=== PATIENT | female | born 1945 | race Caucasian/White ===

== ENCOUNTER 2024-04-21 11:29 | Emergency (ER) | payer MEDICARE ==
--- NOTE | 2024-04-21 11:40 | ERPHSYRPT ---
- History of Present Illness Time Seen by Provider: 04/21/24 11:40 Source: patient Exam Limitations: no limitations Physician History: This is an 79-year-old white female patient who presents with 3 to 4-week history of generalized weakness. Patient has a history of rheumatoid arthritis and Sjogren's syndrome. She is not on any new medications. She denies nausea vomiting and diarrhea symptoms. She denies chest pain or pain anywhere else. She states she does not have much of an appetite. She denies weight loss. She states she is never had anything like this before. She denies cough. She denies chest pain. She denies abdominal pain. Timing/Duration: week(s) (3 to 4 weeks), other (Not necessarily worse but not improving. Patient does not have an outpatient provider locally.) Severity: moderate Modifying Factors: Improves With: nothing Associated Symptoms: loss of appetite, weakness, No nausea, No vomiting, No abdominal pain, No shortness of breath, No chest pain, No fever Allergies/Adverse Reactions: No Known Drug Allergies Allergy (Unverified 04/21/24 11:40) Home Medications: Alendronate Sodium 70 mg [Fosamax 70 MG] 70 mg PO UD 04/21/24 [History] Cevimeline HCl 1 ea DAILY 04/21/24 [History] Timolol Maleate/Pf [Timolol Maleate 0.5% Eye Drop] 1 each OP DAILY 04/21/24 [History] Travel Risk - International Travel Have you traveled outside of the country in past 3 weeks: No - Emerging Infectious Disease Are you exhibiting symptoms associated with any current EIDs: No - Review of Systems Constitutional: Weakness Eyes: No Symptoms Ears, Nose, & Throat: No Symptoms Respiratory: No Symptoms Cardiac: No Symptoms Abdominal/Gastrointestinal: Appetite Changes, No Abdominal Pain, No Nausea, No Vomiting, No Diarrhea, No Constipation Genitourinary Symptoms: No Symptoms Musculoskeletal: No Symptoms Skin: No Symptoms Neurological: No Symptoms Psychological: No Symptoms Endocrine: No Symptoms Hematologic/Lymphatic: No Symptoms Immunological/Allergic: No Symptoms All Other Systems: Reviewed and Negative - Past Medical History Pertinent Past Medical History: Yes Musculoskeletal History: Rheumatoid Arthritis - Past Surgical History Past Surgical History: No - Nursing Vital Signs Nursing Vital Signs: Initial Vital Signs Temperature 97.0 F 04/21/24 11:44 Pulse Rate 82 04/21/24 11:44 Respiratory Rate 12 04/21/24 11:44 Blood Pressure 121/71 04/21/24 11:44 O2 Sat by Pulse Oximetry 95 04/21/24 11:44 Pain Scale Pain Intensity 0 - Physical Exam General Appearance: no apparent distress, alert, anxiety, thin Eye Exam: PERRL/EOMI, eyes nml inspection Ears, Nose, Throat Exam: dry mucous membranes Neck Exam: normal inspection, non-tender, supple, full range of motion Respiratory Exam: normal breath sounds, lungs clear, No chest tenderness, No respiratory distress, No airway intact Cardiovascular Exam: regular rate/rhythm, normal heart sounds, normal peripheral pulses Gastrointestinal/Abdomen Exam: soft, normal bowel sounds, No tenderness Pelvic Exam: not done Rectal Exam: not done Back Exam: normal inspection, normal range of motion, No CVA tenderness, No vertebral tenderness Extremity Exam: normal inspection, normal range of motion, pelvis stable Neurologic Exam: alert, oriented x 3, cooperative, croze cutter helper II-XII nml as tested, nml cerebellar function, nml station & gait, sensation nml Skin Exam: normal color, warm, dry Lymphatic Exam: No adenopathy SpO2 Interpretation: normal O2 Delivery: Room Air - Course Nursing assessment & vital signs reviewed: Yes EKG Interpreted by Me: RATE (82), Sinus Rhythm, NORMAL AXIS, NORMAL INTERVALS, Left Bundle Branch Block, Other (No acute ischemic changes on today's twelve- lead EKG. QTc is 465.) Ordered Tests: Active Orders 24 hr Category Date Time Status EKG-ER Only STAT Care 04/21/24 11:58 Active IV Insertion STAT Care 04/21/24 11:58 Active CBC W DIFF Stat Lab 04/21/24 12:00 Completed CMP Stat Lab 04/21/24 12:00 Completed CULTURE,URINE Stat Lab 04/21/24 12:07 Received MAGNESIUM Stat Lab 04/21/24 12:00 Completed MONO SCREEN Stat Lab 04/21/24 12:00 Completed NT PRO BNPII Stat Lab 04/21/24 12:00 Completed TROPONIN Q4H Lab 04/21/24 12:00 Completed TROPONIN Q4H Lab 04/21/24 16:00 Ordered TROPONIN Q4H Lab 04/21/24 20:00 Ordered TSH [TSH, 3RD Generation] Stat Lab 04/21/24 12:00 Completed UA W/RFX UR CULTURE Stat Lab 04/21/24 12:07 Completed Medication Summary Generic Name Dose Route Start Last Admin Trade Name Freq PRN Reason Stop Dose Admin Sodium Chloride 1,000 mls @ 100 mls/hr 04/21/24 12:00 04/21/24 12:11 Sodium Chloride 0.9% 1000 Ml IV 05/21/24 11:59 100 mls/hr .Q10H CANDELARIA Administration Discontinued Medications Generic Name Dose Route Start Last Admin Trade Name Freq PRN Reason Stop Dose Admin Ceftriaxone Sodium 1 gm in 100 mls @ 200 mls/hr 04/21/24 13:03 04/21/24 13:42 Rocephin 1 Gm / 100 Ml Nacl IV 04/21/24 13:32 Infused STAT ONE Infusion Ceftriaxone Sodium Confirm 04/21/24 13:08 Rocephin 1 Gm / 100 Ml Nacl Administered 04/21/24 13:09 Dose 1 gm in 100 mls @ ud IV .STK-MED ONE Lab/Rad Data: Laboratory Result Diagrams 04/21/24 12:00 04/21/24 12:00 Laboratory Results 04/21/24 04/21/24 04/21/24 Range/Units 12:18 12:07 12:00 WBC (3.98-10.04) x10^3/uL RBC (3.93-5.22) x10^6/uL Hgb (11.2-15.7) g/dL Hct (34.1-44.9) % MCV (79.4-94.8) fL MCH (25.6-32.2) pg MCHC (32.2-35.5) g/dL RDW (11.7-14.4) % Plt Count (182-369) x10^3/uL MPV (9.4-12.3) fL Gran % (34.0-71.1) % Immature Gran % (Auto) (0.001-0.429) % Nucleat RBC Rel Count (0.00-0.2) % Eos # (Auto) (0.04-0.36) x10^3/uL Immature Gran # (Auto) (0.001-0.031) x10^3u/L Absolute Lymphs (auto) (1.18-3.74) x10^3/uL Absolute Monos (auto) (0.24-0.86) x10^3/uL Absolute Nucleated RBC (0.00-0.012) x10^3u/L Lymphocytes % (19.3-51.7) % Monocytes % (4.7-12.5) % Eosinophils % (0.7-5.8) % Basophils % (0.1-1.2) % Absolute Granulocytes (1.56-6.13) x10^3/uL Basophils # (0.01-0.08) x10^3/uL Sodium (135-145) mmol/L Potassium (3.5-5.1) mmol/L Chloride (98-107) mmol/L Carbon Dioxide (22-30) mmol/L Anion Gap (5-15) MEQ/L BUN (7-17) mg/dL Creatinine (0.52-1.04) mg/dL Estimated GFR ML/MIN Glucose (74-106) mg/dL Calcium (8.4-10.2) mg/dL Magnesium (1.6-2.3) mg/dL Total Bilirubin (0.2-1.3) mg/dL AST (14-36) U/L ALT (0-35) U/L Alkaline Phosphatase (38-126) U/L Troponin I (0.000-0.033) ng/mL NT-Pro-B Natriuret Pep (<300) pg/mL Serum Total Protein (6.3-8.2) g/dL Albumin (3.5-5.0) g/dL Free T4 (0.78-2.19) ng/dL TSH 3rd Generation (0.470-4.680) mIU/L Urine Color Yellow (Yellow) Urine Appearance Clear (Clear) Urine pH 5.5 (4.6-8.0) Ur Specific [place] 1.020 (1.005-1.030) Urine Protein Trace A (Negative) Urine Glucose (UA) Negative (Negative) mg/dL Urine Ketones Negative (Negative) Urine Blood Negative (Negative) Urine Nitrite Negative (Negative) Urine Bilirubin Negative (Negative) Urine Urobilinogen 1.0 A (0.2) mg/dL Ur Leukocyte Esterase Small A (Negative) U Hyaline Cast (Auto) NONE SEEN (0-2) /LPF Urine Microscopic RBC 0-2 (0-5) /HPF Urine Microscopic WBC 11-20 A (0-5) /HPF Ur Epithelial Cells Rare (None Seen) /HPF Urine Bacteria None Seen (None Seen) /HPF Urine Culture Reflexed YES (NO) Monoscreen NEGATIVE (NEGATIVE) Influenza Type A Ag NEGATIVE (NEGATIVE) Influenza Type B Ag NEGATIVE (NEGATIVE) RSV (PCR) NEGATIVE (NEGATIVE) SARS-CoV-2 (PCR) NEGATIVE (NEGATIVE) 04/21/24 04/21/24 04/21/24 Range/Units 12:00 12:00 12:00 WBC (3.98-10.04) x10^3/uL RBC (3.93-5.22) x10^6/uL Hgb (11.2-15.7) g/dL Hct (34.1-44.9) % MCV (79.4-94.8) fL MCH (25.6-32.2) pg MCHC (32.2-35.5) g/dL RDW (11.7-14.4) % Plt Count (182-369) x10^3/uL MPV (9.4-12.3) fL Gran % (34.0-71.1) % Immature Gran % (Auto) (0.001-0.429) % Nucleat RBC Rel Count (0.00-0.2) % Eos # (Auto) (0.04-0.36) x10^3/uL Immature Gran # (Auto) (0.001-0.031) x10^3u/L Absolute Lymphs (auto) (1.18-3.74) x10^3/uL Absolute Monos (auto) (0.24-0.86) x10^3/uL Absolute Nucleated RBC (0.00-0.012) x10^3u/L Lymphocytes % (19.3-51.7) % Monocytes % (4.7-12.5) % Eosinophils % (0.7-5.8) % Basophils % (0.1-1.2) % Absolute Granulocytes (1.56-6.13) x10^3/uL Basophils # (0.01-0.08) x10^3/uL Sodium 137 (135-145) mmol/L Potassium 3.4 L (3.5-5.1) mmol/L Chloride 101 (98-107) mmol/L Carbon Dioxide 29 (22-30) mmol/L Anion Gap 10.3 (5-15) MEQ/L BUN 13 (7-17) mg/dL Creatinine 0.66 (0.52-1.04) mg/dL Estimated GFR 88.1 ML/MIN Glucose 147 H (74-106) mg/dL Calcium 8.4 (8.4-10.2) mg/dL Magnesium 2.3 (1.6-2.3) mg/dL Total Bilirubin 0.40 (0.2-1.3) mg/dL AST 21 (14-36) U/L ALT 13 (0-35) U/L Alkaline Phosphatase 70 (38-126) U/L Troponin I < 0.012 (0.000-0.033) ng/mL NT-Pro-B Natriuret Pep 276 (<300) pg/mL Serum Total Protein 5.6 L (6.3-8.2) g/dL Albumin 3.0 L (3.5-5.0) g/dL Free T4 1.12 (0.78-2.19) ng/dL TSH 3rd Generation 0.806 (0.470-4.680) mIU/L Urine Color (Yellow) Urine Appearance (Clear) Urine pH (4.6-8.0) Ur Specific [place] (1.005-1.030) Urine Protein (Negative) Urine Glucose (UA) (Negative) mg/dL Urine Ketones (Negative) Urine Blood (Negative) Urine Nitrite (Negative) Urine Bilirubin (Negative) Urine Urobilinogen (0.2) mg/dL Ur Leukocyte Esterase (Negative) U Hyaline Cast (Auto) (0-2) /LPF Urine Microscopic RBC (0-5) /HPF Urine Microscopic WBC (0-5) /HPF Ur Epithelial Cells (None Seen) /HPF Urine Bacteria (None Seen) /HPF Urine Culture Reflexed (NO) Monoscreen (NEGATIVE) Influenza Type A Ag (NEGATIVE) Influenza Type B Ag (NEGATIVE) RSV (PCR) (NEGATIVE) SARS-CoV-2 (PCR) (NEGATIVE) 04/21/24 Range/Units 12:00 WBC 6.0 (3.98-10.04) x10^3/uL RBC 4.14 (3.93-5.22) x10^6/uL Hgb 12.0 (11.2-15.7) g/dL Hct 35.7 (34.1-44.9) % MCV 86.2 (79.4-94.8) fL MCH 29.0 (25.6-32.2) pg MCHC 33.6 (32.2-35.5) g/dL RDW 13.6 (11.7-14.4) % Plt Count 350 (182-369) x10^3/uL MPV 11.6 (9.4-12.3) fL Gran % 70.9 (34.0-71.1) % Immature Gran % (Auto) 0.5 H (0.001-0.429) % Nucleat RBC Rel Count 0.0 (0.00-0.2) % Eos # (Auto) 0.02 L (0.04-0.36) x10^3/uL Immature Gran # (Auto) 0.03 (0.001-0.031) x10^3u/L Absolute Lymphs (auto) 0.97 L (1.18-3.74) x10^3/uL Absolute Monos (auto) 0.69 (0.24-0.86) x10^3/uL Absolute Nucleated RBC 0.00 (0.00-0.012) x10^3u/L Lymphocytes % 16.2 L (19.3-51.7) % Monocytes % 11.6 (4.7-12.5) % Eosinophils % 0.3 L (0.7-5.8) % Basophils % 0.5 (0.1-1.2) % Absolute Granulocytes 4.23 (1.56-6.13) x10^3/uL Basophils # 0.03 (0.01-0.08) x10^3/uL Sodium (135-145) mmol/L Potassium (3.5-5.1) mmol/L Chloride (98-107) mmol/L Carbon Dioxide (22-30) mmol/L Anion Gap (5-15) MEQ/L BUN (7-17) mg/dL Creatinine (0.52-1.04) mg/dL Estimated GFR ML/MIN Glucose (74-106) mg/dL Calcium (8.4-10.2) mg/dL Magnesium (1.6-2.3) mg/dL Total Bilirubin (0.2-1.3) mg/dL AST (14-36) U/L ALT (0-35) U/L Alkaline Phosphatase (38-126) U/L Troponin I (0.000-0.033) ng/mL NT-Pro-B Natriuret Pep (<300) pg/mL Serum Total Protein (6.3-8.2) g/dL Albumin (3.5-5.0) g/dL Free T4 (0.78-2.19) ng/dL TSH 3rd Generation (0.470-4.680) mIU/L Urine Color (Yellow) Urine Appearance (Clear) Urine pH (4.6-8.0) Ur Specific [place] (1.005-1.030) Urine Protein (Negative) Urine Glucose (UA) (Negative) mg/dL Urine Ketones (Negative) Urine Blood (Negative) Urine Nitrite (Negative) Urine Bilirubin (Negative) Urine Urobilinogen (0.2) mg/dL Ur Leukocyte Esterase (Negative) U Hyaline Cast (Auto) (0-2) /LPF Urine Microscopic RBC (0-5) /HPF Urine Microscopic WBC (0-5) /HPF Ur Epithelial Cells (None Seen) /HPF Urine Bacteria (None Seen) /HPF Urine Culture Reflexed (NO) Monoscreen (NEGATIVE) Influenza Type A Ag (NEGATIVE) Influenza Type B Ag (NEGATIVE) RSV (PCR) (NEGATIVE) SARS-CoV-2 (PCR) (NEGATIVE) - Progress Progress: re-examined Progress Note: 04/21/24 12:08 My medical decision making and the assignment of moderate complexity to this pat ient's medical issue today is based on review of the patient's past medical history, review the patient's medication list, history present illness and physical findings on examination. The workup includes placement of intravenous line, infusion of normal saline solution, CBC, CMP, urinalysis, BNP, troponin level, twelve-lead EKG, free T4, TSH, magnesium level and viral swabs as well as monotest. Differential diagnosis includes but is not limited to viral illness, anemia, myocardial infarction, CHF, electrolyte abnormalities, urinary tract infection, thyroid abnormalities, dehydration 04/21/24 14:25 Interpreted the patient's laboratory data results. The patient has a mild UTI. In addition she does have a mild hypokalemia. There are no other significant findings to suggest an acute or emergent medical issue based on her laboratory data results. Counseled pt/family regarding: lab results, diagnosis Medical Desision Making - Diagnostic Testing Diagnostic test were ordered, analyzed, and reviewed by me: Yes - Risk of complications The pt has a mod risk of morbidity or mortality based on: Need for prescription drug management - Departure Departure Disposition: Home Clinical Impression: Weakness, UTI (urinary tract infection) Condition: Stable Critical Care Time: No Referrals: Marilia Jones [facility] [Primary Care Provider] - Follow up/PCP as directed Additional Instructions: Drink plenty of fluids. Take your antibiotics and other medications as prescribed. Follow-up with a primary care provider to make arrangements for follow-up appointment to be seen in the next 3 to 5 days. Prescriptions: Ciprofloxacin [Cipro 500 MG] 500 mg PO BID #14 tablet
[2024-04-21 11:44] VITALS: TEMP 97
[2024-04-21] MEDS ORDERED: Sodium Chloride 0.9% 1000 ML 1,000 ML ONE (12:09)
[2024-04-21] MEDS: Sodium Chloride 0.9% 1000 ML 1,000 ML IV SCH (12:11)
[2024-04-21 12:22] LABS: Absolute Neutrophil Ct (ANC) 4.23 x10^3/uL (1.56-6.13); BASOPHIL % 0.5 % (0.1-1.2); Basophil (Absolute #) 0.03 x10^3/uL (0.01-0.08); Eosinophil % 0.3 % (0.7-5.8); Eosinophil (Absolute #) 0.02 x10^3/uL (0.04-0.36); Hematocrit 35.7 % (34.1-44.9); IMMATURE GRAN # 0.03 x10^3u/L (0.001-0.031); IMMATURE GRAN % 0.5 % (0.001-0.429); Lymphocyte (Absolute #) 0.97 x10^3/uL (1.18-3.74); Lymphocytes % 16.2 % (19.3-51.7); Mean Cell Volume 86.2 fL (79.4-94.8); Mean Corpuscular Hgb Concent. 33.6 g/dL (32.2-35.5); Mean Platelet Volume 11.6 fL (9.4-12.3); Monocyte (Absolute #) 0.69 x10^3/uL (0.24-0.86); Monocytes % 11.6 % (4.7-12.5); Neutrophil % 70.9 % (34.0-71.1); Platelet Count 350 x10^3/uL (182-369); Red Blood Count 4.14 x10^6/uL (3.93-5.22); Red Cell Distribution Width 13.6 % (11.7-14.4)
[2024-04-21 12:24] LABS: Appearance Clear (Clear); Bacteria None Seen /HPF (None Seen); Bilirubin Negative (Negative); Blood Negative (Negative); Epithelial Cells Rare /HPF (None Seen); Glucose, Urine Negative (Negative); Hyaline Casts NONE SEEN /LPF (0-2); Ketones Negative (Negative); Leukocyte Esterase Small (Negative); Nitrite Negative (Negative); Ph 5.5 (4.6-8.0); Protein,Urine Dip Trace (Negative); RBC 0-2 /HPF (0-5)
[2024-04-21 12:34] LABS: ADD URINE CULTURE? YES (NO)
[2024-04-21 12:59] LABS: INFLUENZA A NEGATIVE (NEGATIVE); INFLUENZA B NEGATIVE (NEGATIVE); RESPIRATORY SYNCTIAL VIRUS NEGATIVE (NEGATIVE); SARS-CoV-2 Xpert Express NEGATIVE (NEGATIVE)
[2024-04-21] MEDS ORDERED: ROCEPHIN 1 GM / 100 ML NaCl 1 GM/100 ML IVPB IV ONE (13:08)
[2024-04-21] MEDS: ROCEPHIN 1 GM / 100 ML NaCl 1 GM/100 ML IVPB IV ONE (13:12)
[2024-04-21 13:16] VITALS: PULSE 79
[2024-04-21 14:03] VITALS: RESP 30; O2SAT 97
[2024-04-21 14:11] LABS: TROPONIN < 0.012 ng/mL (0.000-0.033); TSH, 3RD Generation 0.806 mIU/L (0.470-4.680)
[2024-04-21 14:18] LABS: ANION GAP 10.3 MEQ/L (5-15); BILIRUBIN,TOTAL 0.4 mg/dL (0.2-1.3); Calcium 8.4 mg/dL (8.4-10.2); Creatinine 1 0.66 mg/dL (0.52-1.04); EST GLOMERULAR FILTRATION RATE 88.1 ML/MIN; MAGNESIUM 2.3 mg/dL (1.6-2.3); Potassium 3.4 mmol/L (3.5-5.1); Total Protein 5.6 g/dL (6.3-8.2)
[2024-04-21] MEDS ORDERED: Klor Con ONE (14:30)
[2024-04-21] MEDS: Klor Con PO ONE (14:31)
[2024-04-21 14:56] VITALS: BP 116/60
== END 2024-04-21 15:00 | disposition home or self-care (01) ==
LOC: ED 11:29
DX: N39.0 Urinary tract infection, site not specified (principal); R53.1 Weakness; Z79.899 Other long term (current) drug therapy
CPT/HCPCS: 0241U; 36000; 36415; 80053; 81001; 83735; 83880; 84439; 84443; 84484; 85025; 86308; 87086; 93005; 96365; 99284; J0696; A9270-GY

== ENCOUNTER 2024-04-25 07:32 | Emergency (ER) | payer MEDICARE ==
[2024-04-25 07:43] VITALS: TEMP 97.9
--- NOTE | 2024-04-25 08:16 | ERPHSYRPT ---
- History of Present Illness Source: patient, EMS Exam Limitations: other (Very poor historian) Patient Subjective Stated Complaint: Pt states "I have been dizzy for a month and I was here about 3 weeks ago and they told me I was dehydrated and my potassium was low but didn't find out anything else. I did not follow up with a Dr. I just was to sick, I want to know why I am dizzy." Triage Nursing Assessment: Pt presented alert and oriented X 3, skin wpd. Pt able to speak in clear full sentences. Pt resting comfortably on the cot. Physician History: Patient is an 82-year-old female who is a very poor historian that was brought in by EMS complaint of being dizzy x 4 weeks. Patient was seen several days ago in ER and diagnosed with a urinary tract infection. She states that she is off balance. Patient has a mild headache and complains of some generalized weakness but denies otalgia, chest pain, dyspnea, nausea, vomiting, diarrhea, melena, hematochezia, dysuria, hematuria, and fever. Timing/Duration: other ( 4 weeks) Character of Deficits: general (difuse) ( generalized weakness) Deficits: weak Baseline/Normal Cognition: alert oriented x 3 Current Cognition: alert oriented x 3 Baseline Gait: walks w/o assistance Associated Symptoms: denies symptoms Allergies/Adverse Reactions: No Known Drug Allergies Allergy (Unverified 04/21/24 11:40) Home Medications: Alendronate Sodium 70 mg [Fosamax 70 MG] 70 mg PO UD 04/21/24 [History] Cevimeline HCl 1 ea DAILY 04/21/24 [History] Timolol Maleate/Pf [Timolol Maleate 0.5% Eye Drop] 1 each OP DAILY 04/21/24 [History] Hx Tetanus, Diphtheria Vaccination/Date Given: No Hx Influenza Vaccination/Date Given: Yes Hx Pneumococcal Vaccination/Date Given: Yes Immunizations Up to Date: No Travel Risk - International Travel Have you traveled outside of the country in past 3 weeks: No - Emerging Infectious Disease Are you exhibiting symptoms associated with any current EIDs: No - Review of Systems Constitutional: No Symptoms Eyes: No Symptoms Ears, Nose, & Throat: No Symptoms Respiratory: No Symptoms Cardiac: No Symptoms Abdominal/Gastrointestinal: No Symptoms Genitourinary Symptoms: No Symptoms Musculoskeletal: No Symptoms Skin: No Symptoms Neurological: No Symptoms, Headache, Lethargy Psychological: No Symptoms Endocrine: No Symptoms Hematologic/Lymphatic: No Symptoms Immunological/Allergic: No Symptoms - Past Medical History Pertinent Past Medical History: Yes Musculoskeletal History: Rheumatoid Arthritis Other Medical History: sjogrens - Past Surgical History Past Surgical History: No - Social History Smoking Status: Never smoker Exposure to second hand smoke: No Drug Use: none - Social Determinants of Health Will the patient participate in the screening: Declined to provide - Nursing Vital Signs Nursing Vital Signs: Initial Vital Signs Temperature 97.9 F 04/25/24 07:33 Pulse Rate 77 04/25/24 07:33 Respiratory Rate 18 04/25/24 07:33 Blood Pressure 135/84 04/25/24 07:33 O2 Sat by Pulse Oximetry 95 04/25/24 07:33 Pain Scale Pain Intensity 0 within normal limit - Antonina Coma Scale Best Eye Response ([place]): (4) open spontaneously Best Verbal Response (Antonina): (5) oriented Best Motor Response (Antonina): (6) obeys commands Antonina Total: 15 - Physical Exam General Appearance: no apparent distress Eye Exam: bilateral eye: normal inspection, PERRL, EOMI Ears, Nose, Throat Exam: normal ENT inspection, TMs normal, pharynx normal, moist mucous membranes Neck Exam: normal inspection, non-tender, supple, full range of motion, No meningismus, No mass, No Brudzinski, No Kernig's Respiratory: airway intact, crackles/rales ( faint rales bilateral base) Cardiovascular: regular rate/rhythm, normal heart sounds, normal peripheral pulses, capillary refill <2 sec, No murmur Gastrointestinal: soft, normal bowel sounds, No tenderness Back Exam: normal inspection, normal range of motion, No CVA tenderness Extremity Exam: normal inspection, normal range of motion Mental Status: alert, oriented x 3, cooperative production line mechanic Exam: normal hearing, normal speech, PERRL, No abnormal eye position, No abnormal gag reflex Coordination/Gait: normal gait, normal cerebellar function Motor/Sensory: no motor deficit, no sensory deficit, no pronator drift, negative Babinski's sign DTR: bicep (R): 2+, bicep (L): 2+ Skin Exam: normal color, warm, dry, No rash SpO2 Interpretation: normal SpO2: 95 O2 Delivery: Room Air - Course Nursing assessment & vital signs reviewed: Yes EKG Interpreted by Me: RATE (Normal sinus rhythm/rate 73/left bundle branch block/prolonged QTc/interpreted contemporaneously per ER physician.) - CT Exams Head CT Interpretation: Tele-radiologist Report ( Left mastoiditis otherwise negative) Other CT Interpretation: Tele-radiologist Report (CTA of the head and neck without significant blockage) Ordered Tests: Active Orders 24 hr Category Date Time Status EKG-ER Only STAT Care 04/25/24 07:[address] ANGIOGRAPHY NECK [CT] Stat Exams 04/25/24 09:21 Completed CTA HEAD W AND/OR WO CONTRAST [CT] Stat Exams 04/25/24 09:20 Completed HEAD WITHOUT CONTRAST [CT] Stat Exams 04/25/24 07:44 Completed CBC W DIFF Stat Lab 04/25/24 08:22 Completed CMP Stat Lab 04/25/24 08:22 Completed TROPONIN Q4H Lab 04/25/24 08:22 Completed TROPONIN Q4H Lab 04/25/24 11:45 Completed UA W/RFX UR CULTURE Stat Lab 04/25/24 08:06 Completed Lab/Rad Data: Laboratory Result Diagrams 04/25/24 08:22 04/25/24 08:22 Laboratory Results 04/25/24 04/25/24 04/25/24 Range/Units 11:45 08:22 08:22 WBC (3.98-10.04) x10^3/uL RBC (3.93-5.22) x10^6/uL Hgb (11.2-15.7) g/dL Hct (34.1-44.9) % MCV (79.4-94.8) fL MCH (25.6-32.2) pg MCHC (32.2-35.5) g/dL RDW (11.7-14.4) % Plt Count (182-369) x10^3/uL MPV (9.4-12.3) fL Gran % (34.0-71.1) % Immature Gran % (Auto) (0.001-0.429) % Nucleat RBC Rel Count (0.00-0.2) % Eos # (Auto) (0.04-0.36) x10^3/uL Immature Gran # (Auto) (0.001-0.031) x10^3u/L Absolute Lymphs (auto) (1.18-3.74) x10^3/uL Absolute Monos (auto) (0.24-0.86) x10^3/uL Absolute Nucleated RBC (0.00-0.012) x10^3u/L Lymphocytes % (19.3-51.7) % Monocytes % (4.7-12.5) % Eosinophils % (0.7-5.8) % Basophils % (0.1-1.2) % Absolute Granulocytes (1.56-6.13) x10^3/uL Basophils # (0.01-0.08) x10^3/uL Sodium 138 (135-145) mmol/L Potassium 4.1 (3.5-5.1) mmol/L Chloride 106 (98-107) mmol/L Carbon Dioxide 27 (22-30) mmol/L Anion Gap 9.5 (5-15) MEQ/L BUN 8 (7-17) mg/dL Creatinine 0.54 (0.52-1.04) mg/dL Estimated GFR 92.4 ML/MIN Glucose 114 H (74-106) mg/dL Calcium 8.6 (8.4-10.2) mg/dL Total Bilirubin 0.40 (0.2-1.3) mg/dL AST 22 (14-36) U/L ALT 14 (0-35) U/L Alkaline Phosphatase 72 (38-126) U/L Troponin I < 0.012 < 0.012 (0.000-0.033) ng/mL Serum Total Protein 5.8 L (6.3-8.2) g/dL Albumin 3.0 L (3.5-5.0) g/dL Urine Color (Yellow) Urine Appearance (Clear) Urine pH (4.6-8.0) Ur Specific [place] (1.005-1.030) Urine Protein (Negative) Urine Glucose (UA) (Negative) mg/dL Urine Ketones (Negative) Urine Blood (Negative) Urine Nitrite (Negative) Urine Bilirubin (Negative) Urine Urobilinogen (0.2) mg/dL Ur Leukocyte Esterase (Negative) U Hyaline Cast (Auto) (0-2) /LPF Urine Microscopic RBC (0-5) /HPF Urine Microscopic WBC (0-5) /HPF Ur Epithelial Cells (None Seen) /HPF Urine Bacteria (None Seen) /HPF Urine Culture Reflexed (NO) 04/25/24 04/25/24 Range/Units 08:22 08:06 WBC 4.9 (3.98-10.04) x10^3/uL RBC 4.03 (3.93-5.22) x10^6/uL Hgb 11.7 (11.2-15.7) g/dL Hct 34.6 (34.1-44.9) % MCV 85.9 (79.4-94.8) fL MCH 29.0 (25.6-32.2) pg MCHC 33.8 (32.2-35.5) g/dL RDW 13.4 (11.7-14.4) % Plt Count 350 (182-369) x10^3/uL MPV 11.0 (9.4-12.3) fL Gran % 65.4 (34.0-71.1) % Immature Gran % (Auto) 0.4 (0.001-0.429) % Nucleat RBC Rel Count 0.0 (0.00-0.2) % Eos # (Auto) 0.01 L (0.04-0.36) x10^3/uL Immature Gran # (Auto) 0.02 (0.001-0.031) x10^3u/L Absolute Lymphs (auto) 0.79 L (1.18-3.74) x10^3/uL Absolute Monos (auto) 0.86 (0.24-0.86) x10^3/uL Absolute Nucleated RBC 0.00 (0.00-0.012) x10^3u/L Lymphocytes % 16.1 L (19.3-51.7) % Monocytes % 17.5 H (4.7-12.5) % Eosinophils % 0.2 L (0.7-5.8) % Basophils % 0.4 (0.1-1.2) % Absolute Granulocytes 3.21 (1.56-6.13) x10^3/uL Basophils # 0.02 (0.01-0.08) x10^3/uL Sodium (135-145) mmol/L Potassium (3.5-5.1) mmol/L Chloride (98-107) mmol/L Carbon Dioxide (22-30) mmol/L Anion Gap (5-15) MEQ/L BUN (7-17) mg/dL Creatinine (0.52-1.04) mg/dL Estimated GFR ML/MIN Glucose (74-106) mg/dL Calcium (8.4-10.2) mg/dL Total Bilirubin (0.2-1.3) mg/dL AST (14-36) U/L ALT (0-35) U/L Alkaline Phosphatase (38-126) U/L Troponin I (0.000-0.033) ng/mL Serum Total Protein (6.3-8.2) g/dL Albumin (3.5-5.0) g/dL Urine Color Yellow (Yellow) Urine Appearance Clear (Clear) Urine pH 6.5 (4.6-8.0) Ur Specific [place] <=1.005 (1.005-1.030) Urine Protein Negative (Negative) Urine Glucose (UA) Negative (Negative) mg/dL Urine Ketones Negative (Negative) Urine Blood Negative (Negative) Urine Nitrite Negative (Negative) Urine Bilirubin Negative (Negative) Urine Urobilinogen 0.2 (0.2) mg/dL Ur Leukocyte Esterase Negative (Negative) U Hyaline Cast (Auto) NONE SEEN (0-2) /LPF Urine Microscopic RBC 0-2 (0-5) /HPF Urine Microscopic WBC 0-2 (0-5) /HPF Ur Epithelial Cells None Seen (None Seen) /HPF Urine Bacteria None Seen (None Seen) /HPF Urine Culture Reflexed NO (NO) - Progress Progress: improved Progress Note: 04/25/24 14:05 Nursing note and vital signs reviewed. No food or housing insecurity noted. All lab results thoroughly reviewed and shared with patient. CT of the head result thoroughly reviewed and shared with patient. CTA of the head and neck result thoroughly reviewed and shared with patient. Patient with a normal neurologic exam without any observable focal weakness during her entire ER stay. CT of the head/CTA of the head and neck within normal limits without evidence of acute CVA, specifically occipital CVA. It is possible to patient's symptoms are due to a left mastoiditis, so amoxicillin 875 mg p.o. twice daily x 10 days prescribed. Patient alert and oriented x 3 during entire visit. Discharged in stable condition with instructions to follow-up with her PCP and/or ENT physician. There is also no evidence of a acute myocardial infarction's troponin was within normal limits and EKG was without acute changes. 04/25/24 14:08 Patient's ER stay lengthy due to long delay to get the official reports of the CT/CTA of the head and neck. Counseled pt/family regarding: lab results, diagnosis, need for follow-up, rad results Medical Desision Making - Risk of complications The pt has a mod risk of morbidity or mortality based on: Need for prescription drug management - Departure Departure Disposition: Home Clinical Impression: Acute mastoiditis of left side Condition: Stable Critical Care Time: No Referrals: Marilia Jones NP [NON-STAFF PHY W/O PRIVILEGES] - Follow up/PCP as directed Instructions: Mastoiditis (DC), Dizziness, Nonvertigo, (DC) Additional Instructions: Follow-up with her family MD or an ear nose and throat doctor as soon as possible Amoxicillin 1 tablet twice a day for 10 days Return to ER for worsening dizziness, any chest pain, focal weakness, or shortness of breath. Prescriptions: Amoxicillin 875 mg PO BID 10 Days #20 tablet
[2024-04-25 08:37] LABS: Absolute Neutrophil Ct (ANC) 3.21 x10^3/uL (1.56-6.13); BASOPHIL % 0.4 % (0.1-1.2); Basophil (Absolute #) 0.02 x10^3/uL (0.01-0.08); Eosinophil % 0.2 % (0.7-5.8); Eosinophil (Absolute #) 0.01 x10^3/uL (0.04-0.36); Hematocrit 34.6 % (34.1-44.9); Hemoglobin 11.7 g/dL (11.2-15.7); IMMATURE GRAN # 0.02 x10^3u/L (0.001-0.031); IMMATURE GRAN % 0.4 % (0.001-0.429); Lymphocyte (Absolute #) 0.79 x10^3/uL (1.18-3.74); Lymphocytes % 16.1 % (19.3-51.7); Mean Cell Volume 85.9 fL (79.4-94.8); Mean Corpuscular Hgb Concent. 33.8 g/dL (32.2-35.5); Monocyte (Absolute #) 0.86 x10^3/uL (0.24-0.86); Monocytes % 17.5 % (4.7-12.5); Neutrophil % 65.4 % (34.0-71.1); Platelet Count 350 x10^3/uL (182-369); Red Blood Count 4.03 x10^6/uL (3.93-5.22); Red Cell Distribution Width 13.4 % (11.7-14.4); White Blood Count 4.9 x10^3/uL (3.98-10.04)
[2024-04-25 08:46] LABS: Appearance Clear (Clear); Bacteria None Seen /HPF (None Seen); Bilirubin Negative (Negative); Blood Negative (Negative); Epithelial Cells None Seen /HPF (None Seen); Glucose, Urine Negative (Negative); Hyaline Casts NONE SEEN /LPF (0-2); Ketones Negative (Negative); Leukocyte Esterase Negative (Negative); Nitrite Negative (Negative); Ph 6.5 (4.6-8.0); Protein,Urine Dip Negative (Negative); RBC 0-2 /HPF (0-5); Specific Gravity <=1.005 (1.005-1.030); Urobilinogen 0.2 mg/dL (0.2); WBC 0-2 /HPF (0-5)
[2024-04-25 08:48] LABS: ADD URINE CULTURE? NO (NO)
[2024-04-25 08:53] LABS: ANION GAP 9.5 MEQ/L (5-15); BILIRUBIN,TOTAL 0.4 mg/dL (0.2-1.3); Calcium 8.6 mg/dL (8.4-10.2); Creatinine 1 0.54 mg/dL (0.52-1.04); EST GLOMERULAR FILTRATION RATE 92.4 ML/MIN; Potassium 4.1 mmol/L (3.5-5.1); Total Protein 5.8 g/dL (6.3-8.2)
--- NOTE | 2024-04-25 09:12 | XRAY ---
CLINICAL HISTORY: dizziness COMPARISON: None. TECHNIQUE: An axial non-contrast CT scan of the brain was performed from the skull base to the high parietal region. Sagittal and coronal reconstructed images were also obtained. One of the following dose reduction techniques was utilized for this exam.Automated exposure control, adjustment of the mA and/or kV according to patient size, and use of iterative reconstruction. FINDINGS: There are small ill-defined hypodense areas noted in the periventricular and subcortical white matter bilaterally, suggestive of chronic microvascular ischemic changes. The ventricular system, cortical sulci, and basal cisterns are prominent and consistent with senile changes. No definite calvarium fractures. No intracerebral or extra axial hematoma. Rodrigues-white matter differentiation is maintained. No midline shifts or deformity. Normal CT appearance of the posterior fossa structures. The osseous structures in the skull base are unremarkable. Atheromatous calcifications of the intracranial vertebral and ICAs. The scanned paranasal sinuses are clear apart from small maxillary antral retention cysts. Left mastoiditis. IMPRESSION: 1. No evidence of acute intracranial abnormality could be identified. 2. Senile and chronic microvascular ischemic brain changes. 3. Left mastoiditis, advise clinical correlation. Electronically Signed by: Donavon Reza MD. (04/25/2024 09:06:56 EDT)
[2024-04-25 11:44] VITALS: PULSE 70
--- NOTE | 2024-04-25 12:02 | XRAY ---
CLINICAL HISTORY: dizziness COMPARISON: None. TECHNIQUE: CTA of the brain was performed with the administration of IV contrast, coronal, sagittal and 3D reconstructions were also obtained. One of the following dose reduction techniques was utilized for this exam.Automated exposure control, adjustment of the mA and/or kV according to patient size, and use of iterative reconstruction. One of these 3D techniques was utilized: Maximum Intensity Pixel (MIP), 3D Reconstructed Images, Volume Rendered Images, Surface Shaded Rendering. FINDINGS: Prominent ventricular system with widened cortical sulci and extra-axial CSF spaces. No focal parenchymal abnormalities are demonstrated. Rodrigues-white matter differentiation is maintained. No midline shifts or deformity. No intracerebral or extra axial hematoma. Normal CT appearance of the posterior fossa structures namely the cerebellar hemispheres, brainstem and cerebellar peduncles. The IACs are unremarkable. The cerebello-pontine angles are clear. The pituitary gland, the pineal gland, the optic chiasm is unremarkable. The osseous structures in the skull base are unremarkable. No definite calvarium fractures. No abnormal contrast enhancement seen. Mild bilateral maxillary sinusitis. Persistent origin of the left posterior cerebral from the ipsilateral PCOM (normal variant) Anterior, Middle and Posterior cerebral arteries appear to fill normally. The [place] of [place] appears unremarkable. Normal internal carotid and basilar arteries. Normal vertebral arteries. IMPRESSION: 1. Central and cortical brain involutional changes. 2. Normal CTA examination of the k[place] of [place]. 3. For better evaluation of an underlying acute infarction a dedicated MR brain with diffusion would be advised. [facility] ER was called at [phone] at 10:53 AM [employer], 04/25/2024 and results were verbally communicated to Vivek Mary. Electronically Signed by: Donavon Reza MD. (04/25/2024 11:58:20 EDT)
[2024-04-25 12:03] VITALS: BP 145/77; RESP 25
--- NOTE | 2024-04-25 12:10 | XRAY ---
CLINICAL HISTORY: dizziness COMPARISON: None. TECHNIQUE: Axial CT angiography of the neck was done with contrast 80 cc isovue 370 mg/ml and sagittal and coronal reformats with MIP reconstructions. One of these 3D techniques was utilized: Maximum Intensity Pixel (MIP), 3D Reconstructed Images, Volume Rendered Images, Surface Shaded Rendering. "One of the following dose reduction techniques was utilized for this exam: Automated exposure control, adjustment of the mA and/or kV according to patient size, and use of iterative reconstruction." "One of these 3D techniques was utilized: Maximum Intensity Pixel (MIP), 3D Reconstructed Images, Volume Rendered Images, Surface Shaded Rendering. FINDINGS: Mild aortic arch atherosclerotic calcifications noted. The aortic arch shows a normal branching pattern. Bilateral common carotid arteries appear normal in caliber and contrast opacification. Normal CTA appearance of both carotid bifurcations. The cervical portions of bilateral internal carotid arteries appear normal in caliber and contrast opacification. Bilateral external carotid arteries appear normal in caliber and contrast opacification. The visualized portions of bilateral vertebral arteries appear normal in caliber and contrast opacification. No arteriovenous malformation was noted. Scanned lung apices revealed right upper lobe patchy consolidative patches. IMPRESSION: 1. Mild aortic arch atherosclerotic calcifications other normal CT angiography of the neck. 2. Right upper lobe patchy consolidative patches, Would recommend a dedicated CT scan chest for further evaluation. [facility] ER was called at [phone] at 10:53 AM [employer], 04/25/2024 and results were verbally communicated to Vivek Mary Electronically Signed by: Donavon Reza MD. (04/25/2024 12:05:52 EDT)
[2024-04-25 12:19] VITALS: O2SAT 95
== END 2024-04-25 12:33 | disposition home or self-care (01) ==
LOC: ED 07:32
DX: H70.002 Acute mastoiditis without complications, left ear (principal); R42 Dizziness and giddiness; R51.9 Headache, unspecified; R53.1 Weakness; Z79.899 Other long term (current) drug therapy
CPT/HCPCS: 36415; 70450; 70496; 70498; 80053; 81001; 84484; 85025; 93005; 99284